=== PATIENT | female | born 1990 | race Caucasian/White ===

== ENCOUNTER 2016-11-28 07:43 | Inpatient (IN) ==
[2016-11-28] MEDS ORDERED: Naloxone 0.4 MG/ML INJ IVP PRN (07:47)
[2016-11-28] MEDS ORDERED: Famotidine 20 MG/2 ML VIAL IVP PRN (07:47)
[2016-11-28] MEDS ORDERED: Metoclopramide 10 MG/2 ML VIAL IVP PRN (07:47)
[2016-11-28] MEDS ORDERED: miSOPROStol 25 MCG TABLET PO SCH (08:00)
[2016-11-28] MEDS ORDERED: miSOPROStol 25 MCG TABLET VG SCH (08:00)
[2016-11-28] MEDS ORDERED: Ringers Solution, Lactated 1,000 ML IVC SCH (08:00)
--- NOTE | 2016-11-28 08:08 | OB/GYN History & Physical ---
Date of Encounter: 11/28/16 Time of Encounter: 08:08 Assessment and Plan (1) 39 weeks gestation of Current visit: Yes Status: Acute admit to labor and delivery for IOL due to gestational age > 39 weeks continue FHM and external toco Cytotec PO/vaginally pain medications and epidural anesthesia upon request anticipate (2) Rubella non-immune status, antepartum Current visit: Yes Status: Acute rubella equivocal recommend vaccination History of Present Illness Chief complaint: Scheduled IOL for gestational age >39 weeks HPI: Ms. Estrella is a 26 year old female 39 weeks 0 days presents for scheduled induction of labor. Her OB is Dr. Finney. No complications with to date. History of 2 spontaneous vaginal deliveries without complications and 1 miscarriage at age 17. Denies any complaints at this time such as headache, fever, visual changes, abdominal pain, nausea, vomiting, or shortness of breath. Patient reports irregular contractions and endorses good movement. Denies vaginal bleeding or leakage of fluid. GBS negative, HBV nonreactive, Rubella is equivocal. Other serologies reviewed and are negative. Her blood type is B positive. Past Med Surg Social Fam HX - Past Medical History Medical history: no medical history Psychiatric history: no psych history - Past Surgical History Surgical History: no surgical history - Social History Smoking Status: Never smoker Smokeless Tobacco Status: No Alcohol use: none Drug use: none - Family History Mother Living Status: Still Living Hx Family Cardiac Disorders: No Hx Family Respiratory Disorders: No Hx Family Cancer: No Hx Family GI Disorders: No Hx Family Genitourinary Disorders: No Hx Family Endocrine Disorder: No Hx Family Musculoskeletal Disorders: No Hx Family Neuromuscular Disorders: No Hx Family Neurologic Disorders: No Hx Family HEENT Disorders: No Hx Family Autoimmune Disorders: No Hx Family Reproductive Disorders: No Hx Family Psychosocial Disorders: No Hx Family Medical Disorders: No Obstetrical History - Pregnancies : 4 Para: 2 Term: 2 : 0 Ab's: 1 Livin Medications and Allergies Vit Calc,Iron,Folic [ Vitamins] 1 each PO DAILY #90 tablet [Rx] Azithromycin [Azithromycin 6-Tab Pack] 250 mg PO PER PKG DI #6 tab 11/07/16 [Rx] Loratadine [Claritin] 10 mg PO DAILY #30 tablet 11/07/16 [Rx] Allergies Cefaclor [From Ceclor] Allergy (Verified 10/21/16 13:50) Anaphylaxis Penicillins [PCN] Allergy (Verified 10/21/16 13:50) Anaphylaxis Review of System OB All systems PM: reviewed and no additional remarkable complaints except as stated Exam - Constitutional Constitutional: well developed, well nourished, no acute distress, average body habitus - HEENT HEENT: EOMI, Normocephaly, Mucus Membranes Moist - Neck Neck exam: full ROM, normal inspection, supple - Lungs Respiratory exam: CTAB - Cardiovascular Cardiovascular exam: RRR, +S1, +S2 - Abdomen Abdomen: Present: bowel sounds normal, gravid, non tender - Extremities Extremities exam: full ROM, normal capillary refill, normal inspection, pedal edema (mild, symmetrical bilaterally) Deep Tendon Reflex Grade: 2+ Normal - Cervix Dilation: 3 (per Reg on 11/23) Effacement: 60 (per Reg on 11/23) Station: -1 - Uterus Uterus exam: Present: normal size - Comments Comments: FHR baseline 150 bpm, reactive category 1 with moderate variability and 15x15 accels, contractions are irregular Results Result Diagrams: 11/28/16 08:12 All other labs normal. - VTE Reasons for not Prescribing Prophylaxis: Treatment not Indicated - Low risk for VTE
[2016-11-28 08:17] LABS: Basophils # 0.1 K/mcL (0.0-0.2); Basophils % 0.5 %; Eosinophils # 0.1 K/mcL (0.0-0.6); Eosinophils % 1.1 %; Hematocrit 31.6 % (35.3-44.9); Hemoglobin 10.7 g/dL (11.5-15.4); Immature Granulocytes % 2.4 % (0-4); Lymphocytes # 2.4 K/mcL (0.6-4.6); Lymphocytes % 26.4 %; Mean Corpuscular HGB Conc 33.9 g/dL (31.6-35.5); Mean Corpuscular Hemoglobin 30.7 pg (28.0-33.3); Mean Corpuscular Volume 90.8 fL (83.0-100.0); Mean Platelet Volume 10.7 fL (9.4-12.4); Monocytes # 0.7 K/mcL (0.0-1.3); Monocytes % 7.4 %; Neutrophils # 5.7 K/mcL (1.6-8.9); Platelet Count 195 K/mcL (140-400); Red Blood Count 3.48 M/mcL (3.82-4.97); Red Cell Distribution Width 14.1 % (11.5-14.5); Segmented Neutrophils % 62.2 %
[2016-11-28] MEDS: D5% in 0.45% NACL 1,000 ML IVC SCH ×2 (08:18→16:28)
[2016-11-28] MEDS ORDERED: Oxytocin 20 units/ LR 1000 mL 20 UNIT/1,000 ML BAG IVC ONE (12:49)
[2016-11-28] MEDS ORDERED: Oxytocin 20 units/ LR 1000 mL 20 UNIT/1,000 ML BAG IVC SCH ×2 (12:51→22:19)
--- NOTE | 2016-11-28 13:05 | OB Labor Progress Note ---
Date of Encounter: 11/28/16 Time of Encounter: 12:51 Labor Progress Note - Subjective Subjective: 26-year-old female 39 weeks 0 days presents for scheduled IOL. Patient is resting comfortably. Discussed POC with patient. Denies any questions or concerns. 4 hours after 50 mcg oral Cytotec, no cervical changes 3/60/-1. Contractions are q 2-6 min. Plan is to start Pitocin. - Cervix Cervix: 3/60/-1 per RN - Heart Tones Heart Tones: reactive category 1, baseline 140s with moderate variability and 15x15 accels - Thorp Thorp: external, q2-6 min, irregular - Interventions Interventions: SVE PO 50 mcg Cytotec given at 0817 - Plan Plan: Continue labor management Start Pitocin for effective labor patterns Epidural when desired for pain management Anticipate
--- NOTE | 2016-11-28 15:18 | OB Labor Progress Note ---
Date of Encounter: 11/28/16 Time of Encounter: 15:16 Labor Progress Note - Subjective Subjective: Starting to feel contractions - Cervix Cervix: 4/70%/VTX/0 - Heart Tones Heart Tones: Reactive FHR - [place]: Contractions every 3-4 minutes. Pitocin at 4 mU/min - Interventions Interventions: AROM. Moderate amount of clear fluid. - Plan Plan: Continue expectant care.
[2016-11-28] MEDS ORDERED: Ringers Solution, Lactated 500 ML IVC ONE (16:53)
[2016-11-28] MEDS ORDERED: EPHEDrine 50 MG/ML VIAL IVP PRN (16:53)
[2016-11-28] MEDS ORDERED: Epidural Premix (fent/bupiv) 110 ML EP ONE (16:55)
[2016-11-28] MEDS ORDERED: Epidural Premix (fent/bupiv) 110 ML EP SCH (17:00)
--- NOTE | 2016-11-28 17:27 | Anesthesia Evaluation PreOp ---
Date of Encounter: 11/28/16 Time of Encounter: 17:26 - Past History Planned Operation: CARL Cardiac History: Denies any Significant Hx Pulmonary History: Denies Any Significant HX WEIGHER AND CRUSHER History: Denies Any Significant HX Other Medical History: Denies Any Significant HX Anesthesia History: No Prior Anesthetic Complications : Yes Alcohol Use: none Drug use: none Medications and Allergies Vit Calc,Iron,Folic [ Vitamins] 1 each PO DAILY #90 tablet [Rx] Allergies Cefaclor [From Ceclor] Allergy (Verified 11/28/16 08:57) Anaphylaxis Penicillins [PCN] Allergy (Verified 11/28/16 08:57) Anaphylaxis - Meds/Allergy Pre-op Review Medications Reviewed: Yes Allergies Reviewed: Yes Beta Blockers on Current Med List: No Anesthesia Results - Labs 11/28/16 08:12 Anesthesia Exam Height: 5'5" Weight: 83.5kg NPO (# of Hours): 8 Pain Scale: 10 Pain Scale Used: Numeric (1 - 10) - HEENT Pupil (Motor): Pupils equal Mallampati: II Teeth: Normal Oral Opening: Greater than 3 - WEIGHER AND CRUSHER LOC: Oriented WEIGHER AND CRUSHER Motor: Normal RUE, Normal LUE, Normal RLE, Normal LLE, Normal Face WEIGHER AND CRUSHER Sensory: Normal: RUE, LUE, RLE, LLE, Face - Cardiac Rhythm: Regular Murmur: None JVD: No Carotid Bruit: No - Pulmonary Breath Sounds: bilateral Clear Respiratory Effort: Symmetrical Anesthesia Assess/Plan ASA Score: 2 Modified [place] Scale for Level of Consciousness: Cooperative, oriented, and tranquil Anesthetic Plan: General (plan b), Regional (plan a) Autologous Blood: Yes Monitoring Plan: Standard Monitors
--- NOTE | 2016-11-28 17:29 | Anesthesia Procedures ---
Date of Encounter: 11/28/16 Time of Encounter: 17:27 Procedures: Anesthesia - Epidural/Spinal Patient ID/Chart reviewed: Yes Patient examined: Yes OB Eval: Gestational age: 39 OB Eval: : 4 OB Eval: Hx Para: 2 OB Eval: Dilated at (cm): 6 OB Eval: Contractions: Non-stressed pattern Consent Obtained: Yes Supplemental Oxygen: None/Room Air Site Prep: Aseptic Technique, Sterile prep and drape, Povidone-Iodine 1% Patient position: upright Local Anesthetic: Lidocaine 1% Amount of Local Anesthetic used: 3 Touhy Needle Gauge: 18 Touhy Needle Depth (cm): 7 Catheter Depth at Skin (cm): 15 Test Dose (1.5% Lido + Epi): Volume given (mls): 5 Test Dose Result: Negative Loading Dose: Other: 10mls of epidural pharm bag premix solution Loading Dose Administered: Thru Catheter Infusion Med: 0.125% Bupivacaine w/ 2 mcg/ml Fentanyl Infusion Rate (mls/hr): 15 ([id number] [id number]) Catheter Secured in Place: Tegaderm, Tape Interspace Used: L3-L4 Loss of Resistance (NANCY): Yes Blood: No CSF: No Paresthesia: No Procedure: pt tolerated procedure well. no complications. vss. fhr stable 113/69 hr 81 fhr 135
[2016-11-28] MEDS ORDERED: Lidocaine/EPI 1:200k 2% PF 20 ML VIAL ONE (17:31)
[2016-11-28] MEDS ORDERED: *HR* FentaNYL (PF) 100 MCG/2 ML VIAL ONE (17:31)
--- NOTE | 2016-11-28 17:38 | Anesthesia Progress Note ---
Date of Encounter: 11/28/16 Time of Encounter: 17:37 Anesthesia Note - Note Note: 11/28/16 17:37 bolus given 5ml of 2%lidocaine with epi with 100mcg fentanyl.
--- NOTE | 2016-11-28 19:49 | OB/GYN Procedure Note ---
Delivery - Delivery Date: 11/28/16 Provider: Jonathan Chaparro Intrapartum events: none Delivery induction: misoprostol Delivery augmentation: rupture of membranes, pitocin Delivery monitor: external FHT, external uterine Anesthesia: epidural Estimated Blood Loss: 300 - Infant (s) A Delivery Date: 11/28/16 Delivery Time: 19:09 Presentation: vertex Position: SANAZ Route of delivery: Gender: Male Viability: Viable Pounds: 9 Ounces: 1 Weight Gram: 4110 kg at 1 minute: 9 at 5 mins: 9 Shoulder Dystocia: not encountered Placenta: spontaneous Cord: 3 umbilical vessels - Repair Episiotomy: none Laceration Description: Perineal - 1st Degree - Complications Delivery complications: none - Disposition Mom disposition: stable in LDR disposition: stable in LDR - Comments Comments: Patient progressed to complete dilatation and had a spontaneous vaginal delivery of a viable male . scores were 9 and 9 at one and 5 minutes respectively, the weighed 9 lbs. 1 oz. Placenta delivered spontaneously and appeared to be intact. A first-degree perineal laceration was repaired with 4-0 Vicryl suture. All sponge needle and instrument counts reported as correct. Assessment blood loss 300 mL. No shoulder dystocia was encountered, no nuchal cord was present.
[2016-11-28] MEDS ORDERED: Ibuprofen 600 MG TABLET PO PRN (22:19)
[2016-11-28] MEDS ORDERED: Measles/Mumps/Rubella Vacc 0.5 ML VIAL SQ PRN (22:19)
[2016-11-28] MEDS ORDERED: Acetaminophen 325 MG TABLET PO PRN (22:19)
[2016-11-29 05:15] LABS: Basophils % 0.3 %; Eosinophils # 0.1 K/mcL (0.0-0.6); Eosinophils % 0.5 %; Hematocrit 30.3 % (35.3-44.9); Hemoglobin 10.4 g/dL (11.5-15.4); Immature Granulocytes % 1.5 % (0-4); Lymphocytes # 2.5 K/mcL (0.6-4.6); Lymphocytes % 18.2 %; Mean Corpuscular HGB Conc 34.3 g/dL (31.6-35.5); Mean Corpuscular Hemoglobin 30.6 pg (28.0-33.3); Mean Corpuscular Volume 89.1 fL (83.0-100.0); Mean Platelet Volume 11.1 fL (9.4-12.4); Monocytes # 1.3 K/mcL (0.0-1.3); Monocytes % 9.4 %; Neutrophils # 9.4 K/mcL (1.6-8.9); Platelet Count 192 K/mcL (140-400); Red Cell Distribution Width 13.6 % (11.5-14.5); Segmented Neutrophils % 70.1 %
[2016-11-29] MEDS ORDERED: Ringers Solution, Lactated 1,000 ML ONE (06:40)
--- NOTE | 2016-11-29 08:16 | OB/GYN Progress Note ---
Date of Encounter: 11/29/16 Time of Encounter: 08:15 - Assessment and Plan (1) Status post vaginal delivery Current Visit: Yes Status: Acute (2) Family planning advice Current Visit: Yes Status: Acute Will prep patient for a bilateral partial salpingectomy Subjective - Subjective Interval history: Patient requesting tubal ligation. States does not want anymore children. Risks and benefits explained to patient with failure rate of 3-5 per thousand with increased risk of ectopic if was to occur. Consent was signed. Patient reports: appetite normal, pain well controlled [place]: doing well Objective - Latest Vital Signs Latest vital signs: Vital Signs Temp Pulse Pulse Resp BP Pulse Ox 11/29/16 06:03 98.4 F 84 14 83/52 98 11/29/16 05:30 14 11/29/16 00:18 98.4 F 84 14 122/73 97 11/28/16 23:19 98.3 F 82 16 119/70 99 11/28/16 22:15 97.9 F 79 72 16 122/62 100 11/28/16 08:16 98.4 F 116 24 120/68 Intake and Output 11/28/16 11/29/16 11/29/16 23:59 07:59 15:59 Intake Total 1075 / 1075 Output Total 700 / 700 700 / 700 Balance 375 / 375 -700 / -700 Intake: IV Fluids 1075 / 1075 D5% And 0.45% Nacl 1000 1075 / 1075 Ml Bag 1,000 ML @ 125 mls /hr IVC .Q8H [facility] Rx#: [id number] Output: Urine 500 / 500 700 / 700 Catheter 200 / 200 Other: Weight 78.1 kg - Exam Lungs: bilateral: normal Chest: Normal S1, Normal S2 Extremities: Present: normal Abdomen: Present: normal appearance Uterus: Present: normal - Labs Labs: Laboratory Results - last 24 hr 11/28/16 11/29/16 08:12 04:47 WBC 9.1 13.5 H RBC 3.48 L 3.40 L Hgb 10.7 L 10.4 L Hct 31.6 L 30.3 L MCV 90.8 89.1 MCH 30.7 30.6 MCHC 33.9 34.3 RDW 14.1 13.6 Plt Count 195 192 MPV 10.7 11.1 Immature Gran % 2.4 1.5 Seg Neutrophils % 62.2 70.1 Lymphocytes % 26.4 18.2 Monocytes % 7.4 9.4 Eosinophils % 1.1 0.5 Basophils % 0.5 0.3 Neutrophils # 5.7 9.4 H Lymphocytes # 2.4 2.5 Monocytes # 0.7 1.3 Eosinophils # 0.1 0.1 Basophils # 0.1 0.0
[2016-11-29] MEDS ORDERED: *HR* Propofol 200 MG/20 ML VIAL IVP ONE (08:32)
[2016-11-29] MEDS ORDERED: *HR* FentaNYL (PF) 100 MCG/2 ML VIAL ONE (08:32)
[2016-11-29] MEDS ORDERED: *HR* Midazolam HCl 2 MG/2 ML VIAL ONE (08:32)
--- NOTE | 2016-11-29 08:34 | Anesthesia Evaluation PreOp ---
Date of Encounter: 11/29/16 Time of Encounter: 08:32 - Past History Planned Operation: bps Cardiac History: Denies any Significant Hx Pulmonary History: Denies Any Significant HX INSTRUCTOR NURSE History: Denies Any Significant HX Other Medical History: Denies Any Significant HX Anesthesia History: Past Anesthesia (denies any fh anesthetic complications) Alcohol Use: none Drug use: none Medications and Allergies Vit Calc,Iron,Folic [ Vitamins] 1 each PO DAILY #90 tablet [Rx] Allergies Cefaclor [From Ceclor] Allergy (Verified 11/28/16 08:57) Anaphylaxis Penicillins [PCN] Allergy (Verified 11/28/16 08:57) Anaphylaxis - Meds/Allergy Pre-op Review Medications Reviewed: Yes Allergies Reviewed: Yes Beta Blockers on Current Med List: No Anesthesia Results - Labs 11/29/16 04:47 Anesthesia Exam Vital Signs/O2 Sat/Glucose, Most Current Temp Pulse Resp BP Pulse Ox 11/29/16 06:03 98.4 F 84 14 83/52 98 11/29/16 05:30 14 Height: 1.65 Weight: 78 NPO (# of Hours): >8 - HEENT Pupil (Motor): Pupils equal, EOMI Mallampati: II Teeth: Normal Oral Opening: Greater than 3 - INSTRUCTOR NURSE LOC: Oriented INSTRUCTOR NURSE Motor: Normal RUE, Normal LUE, Normal RLE, Normal LLE, Normal Face INSTRUCTOR NURSE Sensory: Normal: RUE, LUE, RLE, LLE, Face - Cardiac Rhythm: Regular Murmur: None - Pulmonary Breath Sounds: bilateral Clear Respiratory Effort: Symmetrical Anesthesia Assess/Plan ASA Score: 1 Modified [place] Scale for Level of Consciousness: Cooperative, oriented, and tranquil Anesthetic Plan: Regional Monitoring Plan: Standard Monitors Recovery Plan: PACU
[2016-11-29] MEDS ORDERED: Vancomycin 1,250 MG in D5% in Water 250 ML IVPB ONE (08:57)
[2016-11-29] MEDS ORDERED: Prenatal Vit/FA 1 EACH TABLET PO SCH (09:00)
[2016-11-29] MEDS ORDERED: Bupivacaine-MPF 0.25% 10 ML VIAL ONE (09:13)
[2016-11-29] MEDS ORDERED: *HR* Succinylcholine 200 MG/10 ML VIAL IVP ONE (09:20)
[2016-11-29] MEDS ORDERED: Ondansetron 4 MG/2 ML VIAL ONE (09:36)
[2016-11-29] MEDS ORDERED: Dexamethasone 4 MG/ML VIAL ONE (09:36)
[2016-11-29] MEDS ORDERED: Lidocaine/EPI 1:200k 2% PF 20 ML VIAL ONE (09:37)
[2016-11-29] MEDS ORDERED: *HR* Phenylephrine 10 MG/ML VIAL ONE (09:38)
[2016-11-29] MEDS ORDERED: *HR* Promethazine 25 MG/ML VIAL IVP PRN (10:27)
[2016-11-29] MEDS ORDERED: *HR* HYDROmorphone (PF) 1 MG/ML SYRINGE IVP PRN (10:27)
--- NOTE | 2016-11-29 10:48 | Anesthesia Evaluation Post Op ---
Date of Encounter: 11/29/16 Time of Encounter: 10:45 - Vital Signs Vital Signs: 3 Vital Signs Time 1045 BP 100/62 Pulse 79 Resp 16 O2 Sat 97 RA - Lungs Lungs: Clear Ascult./Percussion - Airway Airway: Non-obstructed - Cardiovascular Regular Rate - Mental Status Mental Status: Alert & Oriented, Answers Appropriately - Pain Pain Scale: 0 Pain Scale used: Numeric (1 - 10) - Nausea Vomiting Nausea Vomiting: Not Present - Hydration Hydration: NPO - Discharge PostOp Status: Transfer Patient to floor
[2016-11-29] MEDS ORDERED: Measles/Mumps/Rubella Vacc 0.5 ML VIAL SQ PRN (11:50)
[2016-11-29] MEDS ORDERED: Acetaminophen 325 MG TABLET PO PRN (11:50)
[2016-11-29] MEDS: *HR* HYDROcodone/Acet 5/325 mg TABLET PO PRN ×2 (12:03→20:47)
--- NOTE | 2016-11-29 14:06 | Operative Note ---
Date of procedure: 11/29/16 Pre-op diagnosis: Desires sterilization Post-op diagnosis: same Procedure: Bilateral partial salpingectomy Complications: None Anesthesia: JAMMIEA Surgeon: Bony Cummings [employer] Parker: Lupe Martínez ([id number]) Estimated blood loss (cc): 10 Specimen: Portions of the right and left fallopian tube Condition: stable Disposition: other (Labor and delivery recovery) Procedure in Detail: Patient is a 26-year-old 4 para 3 status post vaginal delivery who desired bilateral partial salpingectomy. Patient states has 3 children and desires no more. Risks and benefits of a tubal ligation is going to the patient with a failure rate of 5-8 per thousand with increased risk of ectopic if was to occur. Procedure:. Patient was taken the operating room where epidural anesthesia was found to be inadequate. Gen. anesthesia was then administered she was then prepped and draped in usual fashion. Timeout was then obtained a small infraumbilical incision was then made carried down through the underlying tissue to the fascia was identified. Fashion was grasped tented up and nicked in the midline. This was extended laterally the parietal peritoneum was identified and entered sharply. 2 [place] retractors placed through the incision the right fallopian tube was identified grasped part out through the incision and followed out to the fimbriated end. At the ampullary region a knuckle of the tube was informed and suture ligated with O plain 2 incorporating the fimbria. A knuckle was excised and good hemostasis. In a similar fashion left tube was identified grasped and brought out through the incision followed out to the fimbriated end. In a similar fashion knuckle was formed incorporating the fimbria this is suture ligated 2 with oh plain and the knuckle was excised. Good hemostasis was noted. Tubes had been returned to the abdomen the fascia was then closed using 0 Vicryl in a running stitch and the skin was closed using 4-0 Vicryl subcutaneous, and a. All needles and sponge counts were correct 3 she did receive preoperative antibiotics.
[2016-11-29] MEDS: Ibuprofen 600 MG TABLET PO PRN ×2 (14:23→23:58)
--- NOTE | 2016-11-30 07:57 | Discharge Summary ---
Date of Encounter: 11/30/16 Time of Encounter: 07:55 - Discharge Diagnosis (1) Vaginal delivery Priority: Primary Status: Acute Comments: Continue routine care discharge home today follow up with Dr. Finney in 4-6 weeks (2) Status post surgical removal of both fallopian tubes Priority: Secondary Status: Acute Comments: Continue routine postop care Motrin 600mg po every 6 hours prn (3) Breast feeding status of mother Priority: Secondary Status: Acute Comments: support prn - Discharge Medications Prescriptions: Ibuprofen [Motrin] 600 mg PO Q6HR PRN #60 tablet PRN Reason: Cramping Breast Pump [BREAST PUMP] 1 each .ROUTE AD #1 each Docusate [Colace] 100 mg PO BID #60 capsule Home Medications: Vit Calc,Iron,Folic [ Vitamins] 1 each PO DAILY #90 tablet [Rx] Breast Pump [BREAST PUMP] 1 each .ROUTE AD #1 each 11/30/16 [Rx] Docusate [Colace] 100 mg PO BID #60 capsule 11/30/16 [Rx] Ibuprofen [Motrin] 600 mg PO Q6HR PRN #60 tablet 11/30/16 [Rx] Vit/FA 1 each PO DAILY tablet 11/30/16 [Rx] Allergies/Adverse Reactions: Allergies Cefaclor [From Ceclor] Allergy (Verified 11/28/16 08:57) Anaphylaxis Penicillins [PCN] Allergy (Verified 11/28/16 08:57) Anaphylaxis Data Procedures and tests throughout hospitalization: Laboratory Tests 11/28/16 11/29/16 08:12 04:47 WBC 9.1 13.5 H RBC 3.48 L 3.40 L Hgb 10.7 L 10.4 L Hct 31.6 L 30.3 L MCV 90.8 89.1 MCH 30.7 30.6 MCHC 33.9 34.3 RDW 14.1 13.6 Plt Count 195 192 MPV 10.7 11.1 Immature Gran % 2.4 1.5 Seg Neutrophils % 62.2 70.1 Lymphocytes % 26.4 18.2 Monocytes % 7.4 9.4 Eosinophils % 1.1 0.5 Basophils % 0.5 0.3 Neutrophils # 5.7 9.4 H Lymphocytes # 2.4 2.5 Monocytes # 0.7 1.3 Eosinophils # 0.1 0.1 Basophils # 0.1 0.0 Date of admission: 11/28/16 07:43 Primary care physician: PCP NO Consults: 11/29/16 11:50 Consult to Operating Room Nurse [CONS] Routine Comment: Vaginal delivery, consult needed Discharging clinician: Ro Wheeler Anticipated date of discharge: 11/30/16 - Patient Status Disposition: Home, Self-Care Condition: Good Functional capacity at discharge: independent ambulation - Discharge Instructions Follow Up With: NO,PCP [Primary Care Provider] - Compa Finney MD [Partnered Physician] - - Diet and Activity Activity: increase activity as tolerated Diet: regular diet Hospital Course Delivery: Episiotomy: none Laceration: 1st degree Other procedures: tubal ligation complications: none Discharge diagnosis: IUP at term delivered baby: male (breast feeding) Time Attestation: Total time spent providing and/or coordinating discharge services: Time Spent: Less than 30 minutes Exam - Constitutional Vitals: Temp Pulse Resp BP Pulse Ox 97.8 F 75 12 108/67 97 11/29/16 20:00 11/29/16 20:00 11/29/16 20:00 11/29/16 20:00 11/29/16 20:00 General appearance IM: A&O X 3, pleasant, answers questions appropriately - Respiratory Respiratory exam: Present: CTAB - Cardiovascular Cardiovascular exam IM: Present: RRR, +S1, +S2 - GI/Abdominal GI/Abdominal exam IM: normal bowel sounds - Uterine Tone: Firm Uterus Position: 1 Finger Below Umbilicus, Midline - Extremities Exam Extremities exam IM: Present: full ROM, normal capillary refill, normal inspection - Neurological Exam Neurological exam: alert, oriented X3, reflexes normal
[2016-11-30] MEDS ORDERED: NON-FORMULARY MEDICATION 1 EACH EACH (Prenatal Vit Calc,Iron,Folic [Prenatal Vitamins] 1 E PO SCH (09:00)
[2016-11-30] MEDS ORDERED: Prenatal Vit/FA 1 EACH TABLET PO SCH (09:00)
[2016-11-30 10:05] VITALS: BP 110/69
[2016-11-30] MEDS: Ibuprofen 600 MG TABLET PO PRN (10:09)
== END 2016-11-30 11:30 | disposition home or self-care (01) | DRG 541 ==
LOC: 1NENULAB 07:43 → 1NENUOBS 22:17